=== PATIENT | male | born 1990 | race African-American/Black ===

== ENCOUNTER 2019-03-22 22:23 | Inpatient (IN) | payer OTHER ==
[2019-03-23 00:21] VITALS: BMI 28.0
--- NOTE | 2019-03-23 02:26 | HP ---
CIWA Score Nausea/Vomitin-No Nausea/No Vomiting Muscle Tremors: 1-None Visible, but [place] Anxiety: 0-No Anxiety, at Ease Agitation: 0-Normal Activity Paroxysmal Sweats: 3 Orientation: 1-Uncertain about Date Tacttile Disturbances: 0-None Auditory Disturbances: 0-None Visual Disturbances: 0-None Headache: 0-None Present CIWA-Ar Total Score: 5 - Admission Criteria OASAS Guidelines: Admission for Medically Managed Detox: Requires at least one of the followin. CIWA greater than 12 2. Seizures within the past 24 hours 3. Delirium tremens within the past 24 hours 4. Hallucinations within the past 24 hours 5. Acute intervention needed for co occurring medical disorder 6. Acute intervention needed for co occurring psychiatric disorder 7. Severe withdrawal that cannot be handled at a lower level of care (continued vomiting, continued diarrhea, abnormal vital signs) requiring intravenous medication and/or fluids 8. Patient presents the following: Acute intervention needed for co-occurring med or psych disorder Admission Criteria Met: Admission criteria met Admitting History and Physical - Smoking History Aproximately how many cigarettes per day: 0 Admission ROS S - HPI Chief Complaint: seeking alcohol detox Allergies/Adverse Reactions: Allergies Allergy/AdvReac Type Severity Reaction Status Date / Time No Known Allergies Allergy Verified 03/23/19 00:08 History of Present Illness: HERE FOR ALCOHOL DETOX. CLIENT REPORTS DAILY USE. SELF REFERRED. KNOWN TO PROGRAM LAST HERE 2014. CLIENT REPORTS MOST RECENT DETOX AT [facility] IN DEC 2018. REPORTS IMMEDIATELY RELAPSING AFTER DC. HE REPORTS DAILY ALCOHOL ABUSE. PRESENTS WITH C/ ONSET OF WITHDRAWAL SX'S. SEEKING HELP HE DOES NOT WANT TO CONT TO USE. DENIES SIGNIFICANT PERIOD OF CLEAN TIME EXCEPT WHEN IN TXMENT 03/20 TO WITHDRAWAL SX'. 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 DENIES HX/O BLACKOUTS AND SZ. AVH. HE ALSO REPORTS HEROIN ABUSE. LAST USE 1 DAY AGO. UTOX NEG FOR ALL OPI. HE IS ALSO POSITIVE FOR THC, CITLALLI. HOMELESS, UNEMPLOYED, [place] Exam Limitations: No Limitations - Ebola screening Have you traveled outside of the country in the last 21 days: No Have you had contact with anyone from an Ebola affected area: No Have you been sick,other than usual withdrawal symptoms: No Do you have a fever: No - Review of Systems Constitutional: Chills, Night Sweats, Changes in sleep EENT: reports: Blurred Vision (GLASSES), Dental Problems, Other (POOR DENTITION WITH MISSING TEETH) Respiratory: reports: No Symptoms reported, Other (HX/O ASTHAM) Cardiac: reports: No Symptoms Reported GI: reports: No Symptoms Reported : reports: No Symptoms Reported Musculoskeletal: reports: No Symptoms Reported Integumentary: reports: Sweating Neuro: reports: Headache (09/25) Endocrine: reports: No Symptoms Reported Hematology: reports: No Symptoms Reported Psychiatric: reports: Orientated x3, Depressed (DENIES SI) Other Systems: Reviewed and Negative Patient History - Patient Medical History Hx Anemia: No Hx Asthma: Yes Hx Chronic Obstructive Pulmonary Disease (COPD): No Hx Cancer: No Hx Cardiac Disorders: No Hx Congestive Heart Failure: No Hx Hypertension: No Hx Hypercholesterolemia: No Hx Pacemaker: No HX Cerebrovascular Accident: No Hx Seizures: No Hx Dementia: No Hx Diabetes: No Hx Gastrointestinal Disorders: No Hx Liver Disease: No Hx Genitourinary Disorders: No Hx Sexually Transmitted Disorders: No Hx Renal Disease (ESRD): No Hx Thyroid Disease: No Hx Human Immunodeficiency Virus (HIV): Yes (DX 2016 VIA HETERO SEXUAL INTERCOURSE) Hx Hepatitis C: No Hx Depression: Yes (TRAZODONE) Hx Suicide Attempt: No Hx Bipolar Disorder: Yes (RYLAR) Hx Schizophrenia: No Other Medical History: DENIES - Patient Surgical History Past Surgical History: No - PPD History Previous Implant?: Yes Documented Results: Negative w/o proof Implanted On Prior [facility] Admission?: No PPD to be Administered?: Yes - Smoking Cessation Smoking history: Current every day smoker Have you smoked in the past 12 months: No Aproximately how many cigarettes per day: 30 Cigars Per Day: 0 Hx Chewing Tobacco Use: No Initiated information on smoking cessation: Yes 'Breaking Loose' booklet given: 03/23/19 - Substance & Tx. History Hx Alcohol Use: Yes Hx Substance Use: Yes Substance Use Type: Alcohol, Cocaine, Heroin Hx Substance Use Treatment: Yes ([facility]) - Substances abused Heroin Substance route: Inhalation Frequency: Daily Amount used: 1bundle Age of first use: 18 Date of last use: 03/22/19 PCP Substance route: Smoking Frequency: Daily Amount used: ' a lot' Age of first use: 18 Date of last use: 03/22/19 Cocaine Substance route: Inhalation Frequency: Daily Amount used: 2 bags Age of first use: 18 Date of last use: 03/22/19 Alcohol Substance route: Oral Frequency: Daily Amount used: 1 GALLON Age of first use: 18 Date of last use: 03/22/19 Admission Physical Exam [facility] - Vital Signs Vital Signs: Vital Signs - 24 hr 03/23/19 03/23/19 00:07 01:51 Temperature 98.2 F 98.2 F Pulse Rate 96 H 96 H Respiratory 20 20 Rate Blood Pressure 137/79 137/79 - Physical General Appearance: Yes: Mild Distress, Tremorous (FELT), Sweating HEENTM: Yes: EOMI, Normocephalic, JENARO, Pharynx Normal, Other (MISSING TEETH) Respiratory: Yes: Chest Non-Tender, Lungs Clear, Normal Breath Sounds, No Respiratory Distress, No Accessory Muscle Use Neck: Yes: No masses,lesions,Nodules, Supple, Trachea in good position Breast: Yes: Breasts Symetrical Cardiology: Yes: Regular Rhythm, Regular Rate, S1, S2 Abdominal: Yes: Normal Bowel Sounds, Non Tender, Soft Genitourinary: Yes: Within Normal Limits Back: Yes: Normal Inspection Musculoskeletal: Yes: full range of Motion, Gait Steady Extremities: Yes: Normal Range of Motion, Non-Tender Neurological: Yes: Fully Oriented, Alert, Motor Strength 5/5, Depressed Affect Integumentary: Yes: Moist, Other (FLUSHED) Lymphatic: Yes: Within Normal Limits - Diagnostic (1) Alcohol dependence with withdrawal, uncomplicated Current Visit: Yes Status: Acute (2) Cocaine dependence, uncomplicated Current Visit: Yes Status: Acute (3) Cannabis dependence, uncomplicated Current Visit: Yes Status: Acute (4) Nicotine dependence Current Visit: Yes Status: Acute Qualifiers: Nicotine product type: cigarettes Substance use status: uncomplicated Qualified Code(s): F17.210 - Nicotine dependence, cigarettes, uncomplicated (5) At risk for dehydration due to poor fluid intake Current Visit: Yes Status: Acute (6) Asthma Current Visit: Yes Status: Chronic Qualifiers: Asthma persistence: unspecified (7) Substance induced mood disorder Current Visit: Yes Status: Acute (8) HIV (human immunodeficiency virus infection) Current Visit: Yes Status: Chronic Qualifiers: HIV symptom status: unspecified Qualified Code(s): B20 - Human immunodeficiency virus [HIV] disease Cleared for Admission [facility] - Detox or Rehab [facility] Level of Care: Medically Managed Detox Regimen/Protocol: Librium Claeared for Rehab Admission: No Breathalyzer - Breathalyzer Breathalyzer: 0.002 Urine Drug Screen - Test Device Lot number: [id number] Expiration date: 03/23/19 - Control Is test valid?: Yes - Results Urine drug screen results: THC-Marijuana, CITLALLI-Cocaine Inpatient Rehab Admission - Rehab Decision to Admit Inpatient rehab admission?: No
[2019-03-23] MEDS ORDERED: guaiFENesin 200 MG/10 ML 10 ML UNIT-DOSE CUPS PO PRN (02:40)
[2019-03-23] MEDS ORDERED: MAGNESIUM CITRATE 300 ML BOTTLE PO PRN (02:40)
[2019-03-23] MEDS ORDERED: P-EPHED 60MG/TRIPROLIDI 2.5MG TABLET PO PRN (02:40)
[2019-03-23] MEDS ORDERED: MAG HYDROX/AL HYDROX/SIMETH 30 ML UNIT-DOSE CUP PO PRN (02:40)
[2019-03-23] MEDS ORDERED: METHOCARBAMOL 500 MG TABLET PO PRN (02:40)
[2019-03-23] MEDS ORDERED: chlordiazePOXIDE HCL 25 MG CAPSULE PO PRN (02:40)
[2019-03-23] MEDS ORDERED: DICYCLOMINE HCL 10 MG CAPSULE PO PRN (02:40)
[2019-03-23] MEDS ORDERED: hydrOXYzine PAMOATE 25 MG CAPSULE (FP) PO PRN (02:40)
[2019-03-23] MEDS ORDERED: IBUPROFEN 400 MG TABLET (FP) PO PRN (02:40)
[2019-03-23] MEDS ORDERED: BISMUTH SUBSALICYLATE 524 MG/30 ML UD PO PRN (02:40)
[2019-03-23] MEDS ORDERED: ACETAMINOPHEN 325 MG TABLET (FP) PO PRN ×2 (02:40)
[2019-03-23] MEDS ORDERED: MAGNESIUM HYDROX 2400MG/30ML ORAL SUSPENSION 30 ML CUP PO PRN (02:40)
[2019-03-23] MEDS ORDERED: MENTHOL/PHENOL 1 EACH UD MM PRN (02:40)
[2019-03-23] MEDS ORDERED: ONDANSETRON *ODT* 4 MG TABLET SL PRN (02:40)
[2019-03-23] MEDS ORDERED: MELATONIN 5 MG TABLETS PO PRN (02:40)
[2019-03-23] MEDS ORDERED: NICOTINE POLACRILEX 2 MG GUM BUC PRN (02:40)
[2019-03-23] MEDS: chlordiazePOXIDE HCL 25 MG CAPSULE PO SCH ×4 (07:41→22:00)
[2019-03-23 10:01] LABS: HEMATOCRIT 37.7 % (35.4-49); HEMOGLOBIN 12.7 GM/dL (11.7-16.9); MCH 31.1 pg (25.7-33.7); MCHC 33.7 g/dl (32.0-35.9); MEAN CELL VOLUME 92.3 fl (80-96); MEAN PLT VOLUME 7.6 fl (7.5-11.1); PLATELET COUNT 273 K/MM3 (134-434); RBC 4.08 M/mm3 (4.00-5.60); RDW 13.4 % (11.9-15.9); WHITE BLOOD COUNT 4.8 K/mm3 (4.0-10.0)
[2019-03-23] MEDS: NICOTINE 21 MG/24 HOURS TOPICAL PATCH TD SCH (10:07)
[2019-03-23] MEDS: BICTEGRAV/EMTRICIT/TENOFOV (BIKTARVY) 50-200-25 MG TABLET PO SCH (10:07)
[2019-03-23] MEDS: PRENATAL VITAMINS W/ FOLIC ACID TABLET (FP) PO SCH (10:07)
[2019-03-23 10:15] LABS: ALBUMIN 3.8 g/dl (3.4-5.0); BILIRUBIN,TOTAL 0.3 mg/dL (0.2-1); BLOOD UREA NITROGEN 12.2 mg/dL (7-18); CALCIUM 8.6 mg/dL (8.5-10.1); CREATININE 1.2 mg/dL (0.55-1.3); POTASSIUM 3.9 mmol/L (3.5-5.1); TOT PROT 6.7 g/dl (6.4-8.2)
--- NOTE | 2019-03-23 11:24 | PN ---
[facility] CIWA - CIWA Score Nausea/Vomitin-Mild Nausea/No Vomiting Muscle Tremors: 2 Anxiety: 2 Agitation: 2 Paroxysmal Sweats: No Perspiration Orientation: 0-Oriented Tacttile Disturbances: 1-Very Mild Itch/Numbness Auditory Disturbances: 0-None Visual Disturbances: 0-None Headache: 2-Mild CIWA-Ar Total Score: 10 S Progress Note (SOAP) Subjective: alert,irritable,anxious,interrupted sleep,tremor Objective: 03/23/19 11:22 Vital Signs Temperature 98.7 F 03/23/19 08:59 Pulse Rate 84 03/23/19 08:59 Respiratory Rate 19 03/23/19 08:59 Blood Pressure 149/74 03/23/19 08:59 O2 Sat by Pulse Oximetry (%) 03/23/19 11:23 Laboratory Last Values WBC 4.8 K/mm3 (4.0-10.0) 03/23/19 06:00 RBC 4.08 M/mm3 (4.00-5.60) 03/23/19 06:00 Hgb 12.7 GM/dL (11.7-16.9) 03/23/19 06:00 Hct 37.7 % (35.4-49) 03/23/19 06:00 MCV 92.3 fl (80-96) 03/23/19 06:00 MCH 31.1 pg (25.7-33.7) 03/23/19 06:00 MCHC 33.7 g/dl (32.0-35.9) 03/23/19 06:00 RDW 13.4 % (11.9-15.9) 03/23/19 06:00 Plt Count 273 K/MM3 (134-434) 03/23/19 06:00 MPV 7.6 fl (7.5-11.1) 03/23/19 06:00 Sodium 140 mmol/L (136-145) 03/23/19 06:00 Potassium 3.9 mmol/L (3.5-5.1) 03/23/19 06:00 Chloride 106 mmol/L (98-107) 03/23/19 06:00 Carbon Dioxide 27 mmol/L (21-32) 03/23/19 06:00 Anion Gap 7 MMOL/L (8-16) L 03/23/19 06:00 BUN 12.2 mg/dL (7-18) 03/23/19 06:00 Creatinine 1.2 mg/dL (0.55-1.3) 03/23/19 06:00 Est GFR (CKD-EPI)AfAm 96.15 03/23/19 06:00 Est GFR (CKD-EPI)NonAf 82.96 03/23/19 06:00 Random Glucose 93 mg/dL (74-106) 03/23/19 06:00 Calcium 8.6 mg/dL (8.5-10.1) 03/23/19 06:00 Total Bilirubin 0.3 mg/dL (0.2-1) 03/23/19 06:00 AST 16 U/L (15-37) 03/23/19 06:00 ALT 21 U/L (13-61) 03/23/19 06:00 Alkaline Phosphatase 72 U/L (45-117) 03/23/19 06:00 Total Protein 6.7 g/dl (6.4-8.2) 03/23/19 06:00 Albumin 3.8 g/dl (3.4-5.0) 03/23/19 06:00 03/23/19 11:23 rpr pending Assessment: 03/23/19 11:23 withdrawal symptom Plan: continue detox librium regimen,encourage oral fluid
--- NOTE | 2019-03-23 15:03 | CONSULT ---
[facility] Psychiatric Consult - Data Date of interview: 03/23/19 Psychiatric History: Patient was approached several time at bedside and each time he was in a deep sleep not responding to verbal stimuli. Please, reconsult when patient is fully awake for an appropriate interview
[2019-03-23] MEDS ORDERED: THIAMINE HCL 100 MG TABLET (FP) PO SCH (22:00)
[2019-03-24] MEDS: chlordiazePOXIDE HCL 25 MG CAPSULE PO SCH ×2 (05:44→12:14)
--- NOTE | 2019-03-24 09:27 | PN ---
[facility] CIWA - CIWA Score Nausea/Vomitin-No Nausea/No Vomiting Muscle Tremors: 1-None Visible, but [place] Anxiety: 1-Mildly Anxious Agitation: 2 Paroxysmal Sweats: No Perspiration Orientation: 0-Oriented Tacttile Disturbances: 0-None Auditory Disturbances: 0-None Visual Disturbances: 0-None Headache: 1-Very Mild CIWA-Ar Total Score: 5 [facility] Progress Note (SOAP) Subjective: alert,irritable,anxious,interrupted sleep Objective: 03/24/19 09:26 Vital Signs Temperature 97.5 F L 03/24/19 06:36 Pulse Rate 62 03/24/19 06:36 Respiratory Rate 18 03/24/19 06:36 Blood Pressure 99/50 L 03/24/19 06:36 O2 Sat by Pulse Oximetry (%) Laboratory Last Values WBC 4.8 K/mm3 (4.0-10.0) 03/23/19 06:00 RBC 4.08 M/mm3 (4.00-5.60) 03/23/19 06:00 Hgb 12.7 GM/dL (11.7-16.9) 03/23/19 06:00 Hct 37.7 % (35.4-49) 03/23/19 06:00 MCV 92.3 fl (80-96) 03/23/19 06:00 MCH 31.1 pg (25.7-33.7) 03/23/19 06:00 MCHC 33.7 g/dl (32.0-35.9) 03/23/19 06:00 RDW 13.4 % (11.9-15.9) 03/23/19 06:00 Plt Count 273 K/MM3 (134-434) 03/23/19 06:00 MPV 7.6 fl (7.5-11.1) 03/23/19 06:00 Sodium 140 mmol/L (136-145) 03/23/19 06:00 Potassium 3.9 mmol/L (3.5-5.1) 03/23/19 06:00 Chloride 106 mmol/L (98-107) 03/23/19 06:00 Carbon Dioxide 27 mmol/L (21-32) 03/23/19 06:00 Anion Gap 7 MMOL/L (8-16) L 03/23/19 06:00 BUN 12.2 mg/dL (7-18) 03/23/19 06:00 Creatinine 1.2 mg/dL (0.55-1.3) 03/23/19 06:00 Est GFR (CKD-EPI)AfAm 96.15 03/23/19 06:00 Est GFR (CKD-EPI)NonAf 82.96 03/23/19 06:00 Random Glucose 93 mg/dL (74-106) 03/23/19 06:00 Calcium 8.6 mg/dL (8.5-10.1) 03/23/19 06:00 Total Bilirubin 0.3 mg/dL (0.2-1) 03/23/19 06:00 AST 16 U/L (15-37) 03/23/19 06:00 ALT 21 U/L (13-61) 03/23/19 06:00 Alkaline Phosphatase 72 U/L (45-117) 03/23/19 06:00 Total Protein 6.7 g/dl (6.4-8.2) 03/23/19 06:00 Albumin 3.8 g/dl (3.4-5.0) 03/23/19 06:00 RPR Titer Nonreactive (NONREACTIVE) 03/23/19 06:00 Assessment: 03/24/19 09:27 withdrawal symptom Plan: continue detox librium regimen
--- NOTE | 2019-03-24 09:32 | PN ---
S Progress Note Note: patient does not want to complete treatment due to personal issue,seen by counselor,high rsk of relapse explained,patient understood signed release callie
--- NOTE | 2019-03-24 09:38 | DS ---
[facility] Detox Discharge Summary Admission Date: 03/23/19 Discharge Date: 03/24/19 - History Present History: Alcohol Dependence, Cannabis Dependence, Cocaine Dependence Pertinent Past History: asthma hiv - Physical Exam Results Vital Signs: Vital Signs Temperature 97.5 F L 03/24/19 06:36 Pulse Rate 62 03/24/19 06:36 Respiratory Rate 18 03/24/19 06:36 Blood Pressure 99/50 L 03/24/19 06:36 O2 Sat by Pulse Oximetry (%) Pertinent Admission Physical Exam Findings: patient alert,oriented x 3,ambulation with out difficulty lung clear no wheezing abdomen soft,no distension,no pain patient has personal issue need to leave,high risk of relapsing explained,siged release ama,has all medications at home,advise follow up with id\dical provider for medical problem and follow up with after care program as arrangement time spending for discharge 30 mins Vital Signs Temperature 97.5 F L 03/24/19 06:36 Pulse Rate 62 03/24/19 06:36 Respiratory Rate 18 03/24/19 06:36 Blood Pressure 99/50 L 03/24/19 06:36 O2 Sat by Pulse Oximetry (%) Laboratory Last Values WBC 4.8 K/mm3 (4.0-10.0) 03/23/19 06:00 RBC 4.08 M/mm3 (4.00-5.60) 03/23/19 06:00 Hgb 12.7 GM/dL (11.7-16.9) 03/23/19 06:00 Hct 37.7 % (35.4-49) 03/23/19 06:00 MCV 92.3 fl (80-96) 03/23/19 06:00 MCH 31.1 pg (25.7-33.7) 03/23/19 06:00 MCHC 33.7 g/dl (32.0-35.9) 03/23/19 06:00 RDW 13.4 % (11.9-15.9) 03/23/19 06:00 Plt Count 273 K/MM3 (134-434) 03/23/19 06:00 MPV 7.6 fl (7.5-11.1) 03/23/19 06:00 Sodium 140 mmol/L (136-145) 03/23/19 06:00 Potassium 3.9 mmol/L (3.5-5.1) 03/23/19 06:00 Chloride 106 mmol/L (98-107) 03/23/19 06:00 Carbon Dioxide 27 mmol/L (21-32) 03/23/19 06:00 Anion Gap 7 MMOL/L (8-16) L 03/23/19 06:00 BUN 12.2 mg/dL (7-18) 03/23/19 06:00 Creatinine 1.2 mg/dL (0.55-1.3) 03/23/19 06:00 Est GFR (CKD-EPI)AfAm 96.15 03/23/19 06:00 Est GFR (CKD-EPI)NonAf 82.96 03/23/19 06:00 Random Glucose 93 mg/dL (74-106) 03/23/19 06:00 Calcium 8.6 mg/dL (8.5-10.1) 03/23/19 06:00 Total Bilirubin 0.3 mg/dL (0.2-1) 03/23/19 06:00 AST 16 U/L (15-37) 03/23/19 06:00 ALT 21 U/L (13-61) 03/23/19 06:00 Alkaline Phosphatase 72 U/L (45-117) 03/23/19 06:00 Total Protein 6.7 g/dl (6.4-8.2) 03/23/19 06:00 Albumin 3.8 g/dl (3.4-5.0) 03/23/19 06:00 RPR Titer Nonreactive (NONREACTIVE) 03/23/19 06:00 - Treatment Hospital Course: Discharged Condition Good Patient has Accepted a Rehab Referral to: refused - Medication Discharge Medications: Ambulatory Orders Bictegrav/Emtricit/Tenofov Ala [Biktarvy 50-200-25 mg Tablet] 1 tablet PO DAILY 03/23/19 Cariprazine HCl [Vraylar] 4.5 mg PO DAILY 03/23/19 traZODone HCL [Trazodone HCl] 100 mg PO HS 03/23/19 - Diagnosis (1) Alcohol dependence with withdrawal, uncomplicated Current Visit: Yes Status: Acute (2) At risk for dehydration due to poor fluid intake Current Visit: Yes Status: Acute (3) Cannabis dependence, uncomplicated Current Visit: Yes Status: Acute (4) Cocaine dependence, uncomplicated Current Visit: Yes Status: Acute (5) Nicotine dependence Current Visit: Yes Status: Acute Qualifiers: Nicotine product type: cigarettes Substance use status: uncomplicated Qualified Code(s): F17.210 - Nicotine dependence, cigarettes, uncomplicated (6) Asthma Current Visit: Yes Status: Chronic Qualifiers: Asthma persistence: unspecified (7) HIV (human immunodeficiency virus infection) Current Visit: Yes Status: Chronic Qualifiers: HIV symptom status: unspecified Qualified Code(s): B20 - Human immunodeficiency virus [HIV] disease - AMA Did Patient Leave Against Medical Advice: Yes
[2019-03-24 10:05] VITALS: BP 105/62; PULSE 57; TEMP 98.2
[2019-03-24] MEDS: NICOTINE 21 MG/24 HOURS TOPICAL PATCH TD SCH (10:14)
[2019-03-24] MEDS: PRENATAL VITAMINS W/ FOLIC ACID TABLET (FP) PO SCH (10:14)
[2019-03-24] MEDS: BICTEGRAV/EMTRICIT/TENOFOV (BIKTARVY) 50-200-25 MG TABLET PO SCH (10:14)
[2019-03-25] MEDS ORDERED: chlordiazePOXIDE HCL 10 MG CAPSULE PO PRN
[2019-03-25] MEDS ORDERED: chlordiazePOXIDE HCL 10 MG CAPSULE PO SCH (05:00)
[2019-03-26] MEDS ORDERED: chlordiazePOXIDE HCL 10 MG CAPSULE PO SCH (05:00)
[2019-03-27] MEDS ORDERED: chlordiazePOXIDE HCL 10 MG CAPSULE PO ONE (05:00)
== END 2019-03-24 10:20 | disposition left against medical advice (07) | DRG 770 ==
LOC: YASAS 22:23 → Y6N 03-23 02:36
PROVIDERS: ADMIT Allergy & Immunology; ATTEND Allergy & Immunology
PROC: HZ2ZZZZ Detoxification Services for Substance Abuse Treatment (ICD-10-PCS; principal; 2019-03-23)
DX: F10.230 Alcohol dependence with withdrawal, uncomplicated (principal); F14.20 Cocaine dependence, uncomplicated; F12.20 Cannabis dependence, uncomplicated; F17.210 Nicotine dependence, cigarettes, uncomplicated; F19.24 Other psychoactive substance dependence with psychoactive substance-induced mood disorder; J45.909 Unspecified asthma, uncomplicated; R63.8 Other symptoms and signs concerning food and fluid intake; Z21 Asymptomatic human immunodeficiency virus [HIV] infection status
CPT/HCPCS: 36415; 80053; 85027; 86593

== ENCOUNTER 2019-12-30 21:21 | Inpatient (IN) | payer OTHER ==
[2019-12-30 21:47] VITALS: BMI 25.9
[2019-12-30] MEDS ORDERED: MENTHOL/PHENOL 1 EACH UD MM PRN (22:51)
[2019-12-30] MEDS ORDERED: BISMUTH SUBSALICYLATE 524 MG/30 ML UD PO PRN (22:51)
[2019-12-30] MEDS ORDERED: ACETAMINOPHEN 325 MG TABLET (FP) PO PRN ×2 (22:51)
[2019-12-30] MEDS ORDERED: MAG HYDROX/AL HYDROX/SIMETH 30 ML UNIT-DOSE CUP PO PRN (22:51)
[2019-12-30] MEDS ORDERED: METHOCARBAMOL 500 MG TABLET PO PRN (22:51)
[2019-12-30] MEDS ORDERED: MAGNESIUM CITRATE 300 ML BOTTLE PO PRN (22:51)
[2019-12-30] MEDS ORDERED: MAGNESIUM HYDROX 2400MG/30ML ORAL SUSPENSION 30 ML CUP PO PRN (22:51)
[2019-12-30] MEDS ORDERED: ONDANSETRON *ODT* 4 MG TABLET SL PRN (22:51)
[2019-12-30] MEDS ORDERED: IBUPROFEN 400 MG TABLET (FP) PO PRN (22:51)
[2019-12-30] MEDS ORDERED: NICOTINE POLACRILEX 2 MG GUM BUC PRN (22:51)
[2019-12-30] MEDS ORDERED: LORATADINE 10 MG TABLET PO PRN (22:55)
[2019-12-30] MEDS ORDERED: COLLOIDAL OATMEAL 1 BAR EACH TP PRN (22:56)
[2019-12-30] MEDS ORDERED: chlordiazePOXIDE HCL 10 MG CAPSULE PO PRN (23:02)
[2019-12-30] MEDS ORDERED: hydrOXYzine PAMOATE 25 MG CAPSULE (FP) PO PRN (23:07)
[2019-12-30] MEDS: chlordiazePOXIDE HCL 25 MG CAPSULE PO SCH (23:36)
[2019-12-31] MEDS: chlordiazePOXIDE HCL 25 MG CAPSULE PO SCH ×3 (05:51→17:32)
[2019-12-31] MEDS ORDERED: NICOTINE 7 MG/24 HOURS TOPICAL PATCH TD SCH (10:00)
[2019-12-31] MEDS ORDERED: PRENATAL VITAMINS W/ FOLIC ACID TABLET (FP) PO SCH (10:00)
[2019-12-31 11:57] LABS: HEMATOCRIT 36.1 % (35.4-49); HEMOGLOBIN 12.2 GM/dL (11.7-16.9); MCH 31.1 pg (25.7-33.7); MCHC 33.9 g/dl (32.0-35.9); MEAN CELL VOLUME 91.8 fl (80-96); PLATELET COUNT 365 K/MM3 (134-434); RBC 3.94 M/mm3 (4.00-5.60); RDW 13.9 % (11.9-15.9); WHITE BLOOD COUNT 6.8 K/mm3 (4.0-10.0)
[2019-12-31 11:58] LABS: POTASSIUM 3.8 mmol/L (3.5-5.1)
[2019-12-31 12:07] LABS: ALBUMIN 3.2 g/dl (3.4-5.0); BLOOD UREA NITROGEN 12.2 mg/dL (7-18)
[2019-12-31 12:08] LABS: CALCIUM 8.4 mg/dL (8.5-10.1)
[2019-12-31 12:09] LABS: BILIRUBIN,TOTAL 0.5 mg/dL (0.2-1); TOT PROT 6.2 g/dl (6.4-8.2)
[2019-12-31 12:10] LABS: CREATININE 1.2 mg/dL (0.55-1.3)
[2019-12-31 21:40] VITALS: BP 110/63; PULSE 71; TEMP 98.2
[2019-12-31] MEDS ORDERED: MELATONIN 5 MG TABLETS PO SCH (22:00)
[2019-12-31] MEDS ORDERED: THIAMINE HCL 100 MG TABLET (FP) PO SCH (22:00)
[2020-01-01] MEDS ORDERED: chlordiazePOXIDE 5 MG CAPSULE PO SCH (05:00)
[2020-01-02] MEDS ORDERED: chlordiazePOXIDE HCL 10 MG CAPSULE PO PRN
[2020-01-02] MEDS ORDERED: chlordiazePOXIDE HCL 10 MG CAPSULE PO SCH (05:00)
[2020-01-03] MEDS ORDERED: chlordiazePOXIDE HCL 10 MG CAPSULE PO SCH (05:00)
[2020-01-04] MEDS ORDERED: chlordiazePOXIDE HCL 10 MG CAPSULE PO ONE (05:00)
== END 2019-12-31 22:10 | disposition left against medical advice (07) | DRG 770 ==
LOC: YASAS 21:21 → Y6N 22:29
PROVIDERS: ADMIT Allergy & Immunology; ATTEND Allergy & Immunology
PROC: HZ2ZZZZ Detoxification Services for Substance Abuse Treatment (ICD-10-PCS; principal; 2019-12-30)
DX: F10.230 Alcohol dependence with withdrawal, uncomplicated (principal); F14.20 Cocaine dependence, uncomplicated; F12.20 Cannabis dependence, uncomplicated; F11.10 Opioid abuse, uncomplicated; F17.210 Nicotine dependence, cigarettes, uncomplicated; F31.9 Bipolar disorder, unspecified; Z21 Asymptomatic human immunodeficiency virus [HIV] infection status; G47.00 Insomnia, unspecified; M54.5 Low back pain; G89.29 Other chronic pain; R73.9 Hyperglycemia, unspecified; R21 Rash and other nonspecific skin eruption; Z91.5 Personal history of self-harm; Z91.030 Bee allergy status
CPT/HCPCS: 36415; 80053; 85027; 86780; 93005; 93010; C9803; U0003

== ENCOUNTER 2020-05-04 00:22 | Inpatient (IN) | payer OTHER ==
[2020-05-04 03:03] VITALS: BMI 24.7
[2020-05-04] MEDS ORDERED: ACETAMINOPHEN 325 MG TABLET (FP) PO PRN ×2 (03:36)
[2020-05-04] MEDS ORDERED: MAGNESIUM CITRATE 300 ML BOTTLE PO PRN (03:36)
[2020-05-04] MEDS ORDERED: BISMUTH SUBSALICYLATE 524 MG/30 ML UD PO PRN (03:36)
[2020-05-04] MEDS ORDERED: MENTHOL/PHENOL 1 EACH UD MM PRN (03:36)
[2020-05-04] MEDS ORDERED: MAG HYDROX/AL HYDROX/SIMETH 30 ML UNIT-DOSE CUP PO PRN (03:36)
[2020-05-04] MEDS ORDERED: ONDANSETRON *ODT* 4 MG TABLET SL PRN (03:36)
[2020-05-04] MEDS ORDERED: METHOCARBAMOL 500 MG TABLET PO PRN (03:36)
[2020-05-04] MEDS ORDERED: NICOTINE POLACRILEX 2 MG GUM BUC PRN (03:36)
[2020-05-04] MEDS ORDERED: IBUPROFEN 400 MG TABLET (FP) PO PRN (03:36)
[2020-05-04] MEDS ORDERED: MAGNESIUM HYDROX 2400MG/30ML ORAL SUSPENSION 30 ML CUP PO PRN (03:36)
[2020-05-04] MEDS ORDERED: chlordiazePOXIDE HCL 25 MG CAPSULE PO PRN (03:36)
[2020-05-04] MEDS ORDERED: chlordiazePOXIDE HCL 25 MG CAPSULE ONE (04:35)
[2020-05-04] MEDS: chlordiazePOXIDE HCL 25 MG CAPSULE PO SCH ×3 (05:07→18:20)
[2020-05-04] MEDS ORDERED: NICOTINE 14 MG/24 HOURS TOPICAL PATCH TD SCH (10:00)
[2020-05-04] MEDS ORDERED: PRENATAL VITAMINS W/ FOLIC ACID TABLET (FP) PO SCH (10:00)
[2020-05-04 13:15] VITALS: BP 156/84; PULSE 74; TEMP 97.1
[2020-05-04] MEDS ORDERED: THIAMINE HCL 100 MG TABLET (FP) PO SCH (22:00)
[2020-05-04] MEDS ORDERED: MELATONIN 5 MG TABLETS PO SCH (22:00)
[2020-05-05] MEDS ORDERED: chlordiazePOXIDE HCL 25 MG CAPSULE PO SCH (05:00)
[2020-05-06] MEDS ORDERED: chlordiazePOXIDE HCL 10 MG CAPSULE PO PRN
[2020-05-06] MEDS ORDERED: chlordiazePOXIDE HCL 10 MG CAPSULE PO SCH (05:00)
[2020-05-07] MEDS ORDERED: chlordiazePOXIDE HCL 10 MG CAPSULE PO SCH (05:00)
[2020-05-08] MEDS ORDERED: chlordiazePOXIDE HCL 10 MG CAPSULE PO ONE (05:00)
== END 2020-05-04 17:25 | disposition left against medical advice (07) | DRG 770 ==
LOC: YASAS 00:22 → Y3N 08:57
PROVIDERS: ADMIT Allergy & Immunology; ATTEND Allergy & Immunology
PROC: HZ2ZZZZ Detoxification Services for Substance Abuse Treatment (ICD-10-PCS; principal; 2020-05-04)
DX: F10.230 Alcohol dependence with withdrawal, uncomplicated (principal); F14.20 Cocaine dependence, uncomplicated; F12.20 Cannabis dependence, uncomplicated; F17.210 Nicotine dependence, cigarettes, uncomplicated; F31.9 Bipolar disorder, unspecified; F41.9 Anxiety disorder, unspecified; F90.9 Attention-deficit hyperactivity disorder, unspecified type; Z21 Asymptomatic human immunodeficiency virus [HIV] infection status; M54.5 Low back pain; G89.29 Other chronic pain; R73.03 Prediabetes
CPT/HCPCS: 82962; C9803; U0003

== ENCOUNTER 2020-05-28 00:50 | Inpatient (IN) | payer OTHER ==
[2020-05-28 01:35] VITALS: BMI 23.7
[2020-05-28] MEDS ORDERED: ACETAMINOPHEN 325 MG TABLET (FP) PO PRN ×2 (02:00)
[2020-05-28] MEDS ORDERED: chlordiazePOXIDE HCL 25 MG CAPSULE PO PRN (02:00)
[2020-05-28] MEDS ORDERED: NICOTINE POLACRILEX 2 MG GUM BUC PRN (02:00)
[2020-05-28] MEDS ORDERED: MENTHOL/PHENOL 1 EACH UD MM PRN (02:00)
[2020-05-28] MEDS ORDERED: ONDANSETRON *ODT* 4 MG TABLET SL PRN (02:00)
[2020-05-28] MEDS ORDERED: cloNIDine HCL 0.1 MG TABLET PO PRN (02:00)
[2020-05-28] MEDS ORDERED: MAGNESIUM CITRATE 300 ML BOTTLE PO PRN (02:00)
[2020-05-28] MEDS ORDERED: METHADONE HCL 10 MG TABLET (FOR DETOX USE ONLY) PO ONE (02:00)
[2020-05-28] MEDS ORDERED: METHOCARBAMOL 500 MG TABLET PO PRN (02:00)
[2020-05-28] MEDS ORDERED: MAG HYDROX/AL HYDROX/SIMETH 30 ML UNIT-DOSE CUP PO PRN (02:00)
[2020-05-28] MEDS ORDERED: BISMUTH SUBSALICYLATE 524 MG/30 ML UD PO PRN (02:00)
[2020-05-28] MEDS ORDERED: MAGNESIUM HYDROX 2400MG/30ML ORAL SUSPENSION 30 ML CUP PO PRN (02:00)
[2020-05-28] MEDS: chlordiazePOXIDE HCL 25 MG CAPSULE PO SCH ×4 (06:30→22:12)
[2020-05-28] MEDS: PRENATAL VITAMINS W/ FOLIC ACID TABLET (FP) PO SCH (11:38)
[2020-05-28] MEDS: NICOTINE 21 MG/24 HOURS TOPICAL PATCH TD SCH (11:41)
[2020-05-28] MEDS: MELATONIN 5 MG TABLETS PO SCH (22:12)
[2020-05-28] MEDS: THIAMINE HCL 100 MG TABLET (FP) PO SCH (22:12)
[2020-05-28] MEDS: SODIUM CHLORIDE NASAL SPRAY 44 ML BOTTLE NS PRN (22:14)
[2020-05-28] MEDS: IBUPROFEN 400 MG TABLET (FP) PO PRN (22:30)
[2020-05-29] MEDS: chlordiazePOXIDE HCL 25 MG CAPSULE PO SCH ×4 (07:16→22:13)
[2020-05-29] MEDS: SODIUM CHLORIDE NASAL SPRAY 44 ML BOTTLE NS PRN ×2 (07:23→22:14)
[2020-05-29] MEDS ORDERED: BICTEGRAV/EMTRICIT/TENOFOV (BIKTARVY) 50-200-25 MG TABLET PO SCH (08:00)
[2020-05-29] MEDS ORDERED: METHADONE HCL 10 MG TABLET (FOR DETOX USE ONLY) ONE (08:57)
[2020-05-29] MEDS ORDERED: METHADONE HCL 5 MG TABLET (FOR DETOX USE ONLY) ONE (08:59)
[2020-05-29 09:35] LABS: HEMATOCRIT 40.4 % (35.4-49); HEMOGLOBIN 13.8 GM/dL (11.7-16.9); MCH 30.8 pg (25.7-33.7); MCHC 34.1 g/dl (32.0-35.9); MEAN CELL VOLUME 90.2 fl (80-96); MEAN PLT VOLUME 7.9 fl (7.5-11.1); PLATELET COUNT 334 K/MM3 (134-434); RBC 4.48 M/mm3 (4.00-5.60); RDW 12.9 % (11.9-15.9); WHITE BLOOD COUNT 4.4 K/mm3 (4.0-10.0)
[2020-05-29 10:00] LABS: BLOOD UREA NITROGEN 15.6 mg/dL (7-18)
[2020-05-29] MEDS ORDERED: METHADONE (DETOX) 20 MG, METHADONE (DETOX) 5 MG PO ONE (10:00)
[2020-05-29] MEDS: IBUPROFEN 400 MG TABLET (FP) PO PRN (10:00)
[2020-05-29 10:02] LABS: ALBUMIN 3.6 g/dl (3.4-5.0)
[2020-05-29 10:03] LABS: BILIRUBIN,TOTAL 0.2 mg/dL (0.2-1)
[2020-05-29 10:04] LABS: CALCIUM 9.1 mg/dL (8.5-10.1)
[2020-05-29] MEDS: NICOTINE 21 MG/24 HOURS TOPICAL PATCH TD SCH (10:04)
[2020-05-29 10:08] LABS: TOT PROT 6.7 g/dl (6.4-8.2)
[2020-05-29] MEDS: PRENATAL VITAMINS W/ FOLIC ACID TABLET (FP) PO SCH (15:14)
[2020-05-29] MEDS: BACITRACIN 0.9 GM PACKET TP SCH ×2 (15:14→22:12)
[2020-05-29] MEDS: DOCUSATE SODIUM 100 MG CAPSULE (FP) PO SCH ×2 (15:14→22:13)
[2020-05-29] MEDS: THIAMINE HCL 100 MG TABLET (FP) PO SCH (22:13)
[2020-05-29] MEDS: MELATONIN 5 MG TABLETS PO SCH (22:13)
[2020-05-30] MEDS ORDERED: chlordiazePOXIDE HCL 10 MG CAPSULE PO PRN
[2020-05-30] MEDS: IBUPROFEN 400 MG TABLET (FP) PO PRN (06:06)
[2020-05-30] MEDS: chlordiazePOXIDE HCL 10 MG CAPSULE PO SCH ×2 (06:07→10:10)
[2020-05-30] MEDS ORDERED: METHADONE HCL 10 MG TABLET (FOR DETOX USE ONLY) PO ONE (10:00)
[2020-05-30] MEDS: BACITRACIN 0.9 GM PACKET TP SCH (10:07)
[2020-05-30] MEDS: PRENATAL VITAMINS W/ FOLIC ACID TABLET (FP) PO SCH (10:07)
[2020-05-30] MEDS: NICOTINE 21 MG/24 HOURS TOPICAL PATCH TD SCH (10:07)
[2020-05-30] MEDS: DOCUSATE SODIUM 100 MG CAPSULE (FP) PO SCH (10:10)
[2020-05-30 12:57] VITALS: BP 134/79; PULSE 84; TEMP 97.5
[2020-05-31] MEDS ORDERED: chlordiazePOXIDE HCL 10 MG CAPSULE PO SCH (05:00)
[2020-05-31] MEDS ORDERED: METHADONE (DETOX) 10 MG, METHADONE (DETOX) 5 MG PO ONE (10:00)
[2020-06-01] MEDS ORDERED: chlordiazePOXIDE HCL 10 MG CAPSULE PO ONE (05:00)
[2020-06-01] MEDS ORDERED: METHADONE HCL 10 MG TABLET (FOR DETOX USE ONLY) PO ONE (10:00)
[2020-06-02] MEDS ORDERED: METHADONE HCL 5 MG TABLET (FOR DETOX USE ONLY) PO ONE (06:00)
== END 2020-05-30 13:39 | disposition left against medical advice (07) | DRG 770 ==
LOC: YASAS 00:50 → Y3N 02:16
PROVIDERS: ADMIT Allergy & Immunology; ATTEND Allergy & Immunology
PROC: HZ2ZZZZ Detoxification Services for Substance Abuse Treatment (ICD-10-PCS; principal; 2020-05-28)
DX: F11.23 Opioid dependence with withdrawal (principal); F10.230 Alcohol dependence with withdrawal, uncomplicated; F14.20 Cocaine dependence, uncomplicated; F17.210 Nicotine dependence, cigarettes, uncomplicated; F20.9 Schizophrenia, unspecified; F31.9 Bipolar disorder, unspecified; Z21 Asymptomatic human immunodeficiency virus [HIV] infection status; J45.909 Unspecified asthma, uncomplicated; R73.03 Prediabetes; R63.4 Abnormal weight loss; Z68.23 Body mass index [BMI] 23.0-23.9, adult; Z56.0 Unemployment, unspecified
CPT/HCPCS: 36415; 80053; 85027; 86780; C9803; Q0162; U0003; U0005

== ENCOUNTER 2020-07-04 17:55 | Inpatient (IN) | payer OTHER ==
[2020-07-04 19:12] VITALS: BMI 22.7
[2020-07-04] MEDS ORDERED: BISMUTH SUBSALICYLATE 524 MG/30 ML PO PRN (21:38)
[2020-07-04] MEDS ORDERED: NALOXONE (NARCAN) HCL 4 MG/0.1 ML SPRAY NS PRN (21:38)
[2020-07-04] MEDS ORDERED: IBUPROFEN 400 MG TABLET (FP) PO PRN (21:38)
[2020-07-04] MEDS ORDERED: NICOTINE POLACRILEX 2 MG GUM BUC PRN (21:38)
[2020-07-04] MEDS ORDERED: chlordiazePOXIDE HCL 25 MG CAPSULE PO PRN (21:38)
[2020-07-04] MEDS ORDERED: METHOCARBAMOL 500 MG TABLET PO PRN (21:38)
[2020-07-04] MEDS ORDERED: MAGNESIUM CITRATE 300 ML BOTTLE PO PRN (21:38)
[2020-07-04] MEDS ORDERED: NALOXONE HCL 0.4 MG/ML VIAL IM PRN (21:38)
[2020-07-04] MEDS ORDERED: cloNIDine HCL 0.1 MG TABLET PO PRN (21:38)
[2020-07-04] MEDS ORDERED: ACETAMINOPHEN 325 MG TABLET (FP) PO PRN ×2 (21:38)
[2020-07-04] MEDS ORDERED: METHADONE HCL 10 MG TABLET (FOR DETOX USE ONLY) PO ONE (21:38)
[2020-07-04] MEDS ORDERED: ONDANSETRON *ODT* 4 MG TABLET SL PRN (21:38)
[2020-07-04] MEDS ORDERED: MAG HYDROX/AL HYDROX/SIMETH 30 ML UNIT-DOSE CUP PO PRN (21:38)
[2020-07-04] MEDS ORDERED: MENTHOL/PHENOL 1 EACH UD MM PRN (21:38)
[2020-07-04] MEDS ORDERED: MAGNESIUM HYDROX 2400MG/30ML ORAL SUSPENSION 30 ML CUP PO PRN (21:38)
[2020-07-05] MEDS: hydrOXYzine PAMOATE 25 MG CAPSULE (FP) PO SCH ×6 (00:31→22:42)
[2020-07-05] MEDS: chlordiazePOXIDE HCL 25 MG CAPSULE PO SCH ×5 (00:31→22:42)
[2020-07-05] MEDS: THIAMINE HCL 100 MG TABLET (FP) PO SCH ×2 (00:31→22:42)
[2020-07-05] MEDS: MELATONIN 5 MG TABLETS PO SCH ×2 (00:35→22:43)
[2020-07-05] MEDS ORDERED: ALBUTEROL SO4 HFA INHALER IH PRN (08:05)
[2020-07-05] MEDS ORDERED: METHADONE HCL 5 MG TABLET (FOR DETOX USE ONLY) ONE (08:56)
[2020-07-05] MEDS ORDERED: METHADONE HCL 10 MG TABLET (FOR DETOX USE ONLY) ONE (08:57)
[2020-07-05 09:58] LABS: MCH 29.9 pg (25.7-33.7); MCHC 33.2 g/dl (32.0-35.9); MEAN CELL VOLUME 89.8 fl (80-96); MEAN PLT VOLUME 7.7 fl (7.5-11.1); PLATELET COUNT 235 K/MM3 (134-434); RDW 13.2 % (11.9-15.9); WHITE BLOOD COUNT 3.5 K/mm3 (4.0-10.0)
[2020-07-05] MEDS ORDERED: METHADONE (DETOX) 20 MG, METHADONE (DETOX) 5 MG PO ONE (10:00)
[2020-07-05 10:03] LABS: ALBUMIN 3.4 g/dl (3.4-5.0); BLOOD UREA NITROGEN 13.6 mg/dL (7-18); CALCIUM 8.8 mg/dL (8.5-10.1)
[2020-07-05 10:06] LABS: CREATININE 1.1 mg/dL (0.55-1.3)
[2020-07-05 10:08] LABS: BILIRUBIN,TOTAL 0.5 mg/dL (0.2-1)
[2020-07-05] MEDS: PRENATAL VITAMINS W/ FOLIC ACID TABLET (FP) PO SCH (11:05)
[2020-07-05] MEDS: BICTEGRAV/EMTRICIT/TENOFOV (BIKTARVY) 50-200-25 MG TABLET PO SCH (13:51)
[2020-07-05] MEDS ORDERED: QUEtiapine FUMARATE 50 MG TABLET PO PRN (22:00)
[2020-07-06] MEDS: chlordiazePOXIDE HCL 25 MG CAPSULE PO SCH ×4 (06:09→22:48)
[2020-07-06] MEDS: hydrOXYzine PAMOATE 25 MG CAPSULE (FP) PO SCH ×5 (06:09→22:48)
[2020-07-06] MEDS ORDERED: METHADONE HCL 10 MG TABLET (FOR DETOX USE ONLY) PO ONE (10:00)
[2020-07-06] MEDS: PRENATAL VITAMINS W/ FOLIC ACID TABLET (FP) PO SCH (10:23)
[2020-07-06] MEDS: BICTEGRAV/EMTRICIT/TENOFOV (BIKTARVY) 50-200-25 MG TABLET PO SCH (10:23)
[2020-07-06] MEDS: THIAMINE HCL 100 MG TABLET (FP) PO SCH (22:48)
[2020-07-06] MEDS: MELATONIN 5 MG TABLETS PO SCH (22:49)
[2020-07-07] MEDS ORDERED: chlordiazePOXIDE HCL 10 MG CAPSULE PO PRN
[2020-07-07] MEDS: hydrOXYzine PAMOATE 25 MG CAPSULE (FP) PO SCH ×3 (06:00→13:31)
[2020-07-07] MEDS: chlordiazePOXIDE HCL 10 MG CAPSULE PO SCH ×2 (06:00→10:17)
[2020-07-07] MEDS ORDERED: METHADONE HCL 5 MG TABLET (FOR DETOX USE ONLY) ONE (09:07)
[2020-07-07] MEDS ORDERED: METHADONE HCL 10 MG TABLET (FOR DETOX USE ONLY) ONE (09:08)
[2020-07-07] MEDS ORDERED: METHADONE (DETOX) 10 MG, METHADONE (DETOX) 5 MG PO ONE (10:00)
[2020-07-07] MEDS: PRENATAL VITAMINS W/ FOLIC ACID TABLET (FP) PO SCH (10:16)
[2020-07-07] MEDS: BICTEGRAV/EMTRICIT/TENOFOV (BIKTARVY) 50-200-25 MG TABLET PO SCH (10:18)
[2020-07-07 11:37] VITALS: PULSE 73; TEMP 96.1
[2020-07-07 14:40] VITALS: BP 142/73
[2020-07-08] MEDS ORDERED: chlordiazePOXIDE HCL 10 MG CAPSULE PO SCH (05:00)
[2020-07-08] MEDS ORDERED: METHADONE HCL 10 MG TABLET (FOR DETOX USE ONLY) PO ONE (10:00)
[2020-07-09] MEDS ORDERED: chlordiazePOXIDE HCL 10 MG CAPSULE PO ONE (05:00)
[2020-07-09] MEDS ORDERED: METHADONE HCL 5 MG TABLET (FOR DETOX USE ONLY) PO ONE (06:00)
== END 2020-07-07 14:21 | disposition left against medical advice (07) | DRG 770 ==
LOC: YASAS 17:55 → Y6N 22:40
PROVIDERS: ADMIT Allergy & Immunology; ATTEND Allergy & Immunology
PROC: HZ2ZZZZ Detoxification Services for Substance Abuse Treatment (ICD-10-PCS; principal; 2020-07-04)
DX: F11.23 Opioid dependence with withdrawal (principal); F10.230 Alcohol dependence with withdrawal, uncomplicated; F14.20 Cocaine dependence, uncomplicated; F17.210 Nicotine dependence, cigarettes, uncomplicated; F31.9 Bipolar disorder, unspecified; F19.24 Other psychoactive substance dependence with psychoactive substance-induced mood disorder; F39 Unspecified mood [affective] disorder; F90.9 Attention-deficit hyperactivity disorder, unspecified type; F41.9 Anxiety disorder, unspecified; Z21 Asymptomatic human immunodeficiency virus [HIV] infection status; J45.909 Unspecified asthma, uncomplicated; M54.5 Low back pain; G89.29 Other chronic pain; R73.03 Prediabetes
CPT/HCPCS: 36415; 80053; 82947; 85027; 86780; C9803; Q0162; U0003; U0005

== ENCOUNTER 2021-02-15 18:14 | Emergency (ER) | payer OTHER ==
[2021-02-15 18:31] VITALS: BP 155/65; PULSE 76; TEMP 98.3; BMI 23.1
[2021-02-15 20:09] LABS: BASO % 0.4 % (0-2.0); EOS % 0.3 % (0-4.5); HEMATOCRIT 40.1 % (35.4-49); HEMOGLOBIN 13.1 GM/dL (11.7-16.9); LYMPH % 10.3 % (8-40); MCH 29.7 pg (25.7-33.7); MCHC 32.7 g/dl (32.0-35.9); MEAN CELL VOLUME 90.9 fl (80-96); MEAN PLT VOLUME 7.4 fl (7.5-11.1); MONO % 12.7 % (3.8-10.2); NEUT % 76.3 % (42.8-82.8); PLATELET COUNT 239 10^3/uL (134-434); RBC 4.41 M/mm3 (4.00-5.60); RDW 13.5 % (11.9-15.9); WHITE BLOOD COUNT 4.1 K/mm3 (4.0-10.0)
[2021-02-15 20:35] LABS: CHLORIDE 102 mmol/L (98-107); SODIUM 136 mmol/L (136-145)
[2021-02-15 20:38] LABS: CALCIUM 8.6 mg/dL (8.5-10.1)
[2021-02-15 20:40] LABS: ANION GAP 6 MMOL/L (8-16); BLOOD UREA NITROGEN 14.8 mg/dL (7-18); CO2 28 mmol/L (21-32); GLUCOSE,RANDOM 80 mg/dL (74-106)
[2021-02-15 20:43] LABS: CREATININE 1.2 mg/dL (0.55-1.3); SGOT/AST 80 U/L (15-37); SGPT/ALT 57 U/L (13-61)
[2021-02-15 20:45] LABS: BILIRUBIN,TOTAL 0.4 mg/dL (0.2-1); TOT PROT 7.4 g/dl (6.4-8.2)
[2021-02-15 20:46] LABS: ALK PHOS 116 U/L (45-117)
== END 2021-02-16 00:20 | disposition home or self-care (01) ==
LOC: JER 18:14
DX: R55 Syncope and collapse (principal); F14.90 Cocaine use, unspecified, uncomplicated; W19.XXXA Unspecified fall, initial encounter
CPT/HCPCS: 36415; 70450-TC; 80053; 84484; 85025; 93005; 93010; 99285-25